=== PATIENT | male | born 1960 | race Caucasian/White ===

== ENCOUNTER → 2022-04-30 11:45 | Outpatient (CLI) | payer OTHER, SELFPAY ==
[2022-04-30 13:04] LABS: COVID19 -Nasal RAPID Negative (Negative)
== END ==
PROVIDERS: PCP Family Medicine; Visit Provider Surgery
DX: Z20.822 Contact with and (suspected) exposure to COVID-19 (principal); Z01.812 Encounter for preprocedural laboratory examination
CPT/HCPCS: 87635; C9803

== ENCOUNTER 2022-05-03 06:57 | Day surgery (SDC) | payer OTHER, SELFPAY ==
--- NOTE | 2022-05-03 | PATH_ITS ---
[facility] Accession Number: [id number] . 01 Material submitted: . rectum - RECTAL POLYPS . 01 Diagnosis: Rectal Polyps: Hyperplastic polyps x3. MRV 05/05/2022 1657 Local . 01 Electronically signed: . Aleida Koo MD, Pathologist NPI- [id number] . 01 Gross description: . RECTAL POLYPS: Received in formalin are 3 fragment(s) of hernadez, soft tissue measuring 0.4 x 0.2 x 0.1 cm to 0.3 x 0.3 x 0.2 cm submitted entirely in 1 cassette(s) /CPE 05/04/2022 0855 Local . 01 Pathologist provided ICD-10: Z12.11, K63.5 . 01 CPT . 002542 Performed at: 01 [facility] [address] [place] [id number] MD Zachariah Coyne MD Phone: [phone]
[2022-05-03 07:24] VITALS: BP 146/98; PULSE 76; RESP 16; TEMP 36.2; O2SAT 97; BMI 29.5
[2022-05-03] MEDS: SODIUM CHLORIDE 0.9% 1,000 ML 84 ML IV (07:36)
--- NOTE | 2022-05-03 07:56 | PM.HP.1 ---
History of Present Illness History of Present Illness Date Patient Seen: 05/03/22 Time Patient Seen: 07:56 Chief complaint: Colonoscopy Narrative: Here for colon cancer screening Patient History Family & Social History Social History: household members spouse Tobacco & Substance use: Tobacco type cigars Smoking Status Current some day smoker alcohol intake current alcohol intake frequency 0-2 drinks per day Substance Use Type does not use Meds Home Medications and Allergies Home Medications Medication Instructions Recorded Confirmed Type dronedarone 400 mg tablet (Multaq) 400 mg PO DAILY 05/03/22 05/03/22 History escitalopram oxalate 10 mg tablet 20 mg PO DAILY 05/03/22 05/03/22 History metoprolol tartrate 25 mg tablet 25 mg PO BID 05/03/22 05/03/22 History rosuvastatin 20 mg tablet 20 mg PO DAILY 05/03/22 05/03/22 History valsartan 80 mg tablet 80 mg PO DAILY 05/03/22 05/03/22 History Allergies Allergy/AdvReac Type Severity Reaction Status Date / Time No Known Drug Allergies Allergy Verified 05/03/22 07:20 Review of Systems Review of Systems ROS: Yes All systems reviewed with the patient and are negative except as otherwise documented Exam Vital Signs (past 8 hours): - 05/03/22 07:24 Temperature 97.1 F L Pulse Rate 76 Respiratory Rate 16 Blood Pressure 146/98 H Pulse Oximetry 97 Oxygen Delivery Method Room Air Oxygen Delivery Method Room Air Const General: cooperative HENMT Head: normal to inspection Eyes General: appearance normal, both eyes and all related structures Neck Neck: normal visual inspection Chest Chest: normal inspection of the chest Resp Effort & Inspection: normal respiratory effort Cardio Rate: regular rate GI Inspection: normal to inspection Skin General: no rashes or lesions noted Neuro General: patient alert and patient awake Extrem General: normal to inspection and no pedal edema Psych Appearance: grossly normal Assessment & Plan Assessment & Plan narrative: 61-year-old male here for colon cancer screening. Colonoscopy is planned for today. Time Spent With Patient Critical Care time: I spent a total of [] minutes of critical care time on this patient's care today; this time is exclusive of procedural time.
--- NOTE | 2022-05-03 07:57 | PM.PREOP ---
Pre-operative Note COVID-19 COVID-19 status: Negative Result date/Date tested (Pos, Neg/Pending): 04/30/22 Criteria for continued procedure: Possibility delay results in more complex future surgery or treatment Interval Note History & Physical reviewed/Exam performed by Physician: Yes Changes to H&P: No ASA Class (for procedural sedation): II
--- NOTE | 2022-05-03 08:18 | PM.OP.COLON ---
Operative Date/Time/Diagnoses Date of procedure: 05/03/22 Time of procedure: 08:18 Pre-op diagnosis: Colon cancer screening Post-op diagnosis: same Procedure & Clinicians Study performed: Colonoscopy with cold snare polypectomy Same procedure as scheduled: Yes Indications: Colon cancer screening Surgeon: Satya Medina Procedure Notes SCOAP/Timeout: Done Procedure in detail: After the risks and benefits were explained, written and verbal informed consent was obtained. The patient was brought into the procedure room and placed into the left lateral decubitus position. Please see nurse spooler rubber strand notes for sedation details. Digital rectal examination was accomplished. The scope was introduced into the patient and advanced under direct visualization to the cecum as identified by the appendiceal orifice and ileocecal valve. The scope was slowly withdrawn to carefully examine the mucosa for any defects or lesions. Comprehensive imaging was accomplished throughout the rectum including the dentate line. The colon was decompressed, the scope was then removed from the patient who tolerated the procedure well. Adult colonoscope Bowel prep adequate Scope withdrawal time: 10 minutes Sedation minutes: 16 Complications: none Impression: There was some diverticulosis noted in the sigmoid region. There were a few hyperplastic appearing polyps measuring about 5 mm each removed with cold snare from the rectum. No additional pathology was appreciated throughout. The patient had grade 2 to grade 3 nonthrombosed nonbleeding hemorrhoids Endoscopic diagnosis 1. Grade 2-3 hemorrhoids 2. Diverticulosis 3. Rectal polyps Post-procedure Plan for aftercare: 1. Await histopathology 2. Surveillance will be indicated should there be any adenomatous features. Otherwise repeat colonoscopy for colon cancer screening would be suggested for 10 years time. Disposition: PACU
[2022-05-03 08:20] VITALS: BP 120/71; PULSE 80; RESP 16; TEMP 37; O2SAT 96
[2022-05-03 08:24] VITALS: BP 114/78; PULSE 74; RESP 16; O2SAT 94
[2022-05-03 08:29] VITALS: BP 116/86; PULSE 70; RESP 16; O2SAT 96
[2022-05-03 08:37] VITALS: BP 128/93; PULSE 65; RESP 14; TEMP 36.1; O2SAT 96
== END 2022-05-03 08:50 | disposition home or self-care (01) ==
PROVIDERS: PCP Family Medicine; Referring Provider Internal Medicine Gastroenterology; Visit Provider Internal Medicine Gastroenterology
PROC: 0DJD8ZZ Inspection of Lower Intestinal Tract, Via Natural or Artificial Opening Endoscopic (ICD-10-PCS; CPT 45378; principal; 2022-05-03 08:00)
DX: Z12.11 Encounter for screening for malignant neoplasm of colon (principal); F17.210 Nicotine dependence, cigarettes, uncomplicated; K64.1 Second degree hemorrhoids; K57.30 Diverticulosis of large intestine without perforation or abscess without bleeding; K62.1 Rectal polyp
CPT/HCPCS: 45385; J2704